=== PATIENT | male | born 1985 | race Caucasian/White ===

== ENCOUNTER 2018-07-23 22:51 | Emergency (ER) | END 2018-07-23 23:45 | disposition left against medical advice (07) ==

== ENCOUNTER 2018-10-23 13:03 | Emergency (ER) | payer OTHER ==
[~2018-10-23] VITALS: Ht 167.6 cm; Wt 73.6 kg
[~2018-10-23 13:03] MED LIST: CEPH-443 PO; CLIN300C10 PO; HYDR25SU23 PR; IBUP-1542 PO; IBUP800T48 PO; SULF1TAB31 PO
[2018-10-23 13:11] VITALS: Ht 167.6 cm; Wt 73.6 kg
--- NOTE | 2018-10-23 14:09 | ERD ---
ER Documentation Chief Complaint Chief Complaint pt here for medrefill-unknown abx-pt lost his prescription HPI 33-year-old male, presents the emergency department, complaining of sore throat and ear pain, the patient was diagnosed 2 days ago with bacterial pharyngitis at another facility and was prescribed with cephalexin, the patient states that he lost his prescription, otherwise, he reports headache, sore throat and general malaise. ROS All systems reviewed and are negative except as per history of present illness. Medications Home Meds Active Scripts Ibuprofen* (Motrin*) 400 Mg Tab, 400 MG PO Q8, #10 TAB Prov:BELKIS OLSON MD 10/23/18 Cephalexin* (Keflex*) 500 Mg Capsule, 500 MG PO BID for 7 Days, CAP Prov:BELKIS OLSON MD 10/23/18 Hydrocortisone Acetate (Anusol-Hc) 25 Mg Supp.rect, 1 SUPP [place] QHS PRN for HEMORROID PAIN/ITCHING, #12 SUPP.RECT Prov:DEEP MORRIS PA-C 09/21/18 Ibuprofen* (Motrin*) 600 Mg Tab, 600 MG PO Q6, #30 TAB Prov:DEEP MORRIS PA-C 09/21/18 Clindamycin Hcl* (Clindamycin Hcl*) 300 Mg Capsule, 300 MG PO TID for 7 Days, CAP Prov:DEEP MORRIS PA-C 09/21/18 Sulfamethoxazole/Trimethoprim* (Bactrim Ds* Tablet) 1 Each Tablet, 1 TAB PO BID for 7 Days, #14 TAB Prov:DRAKE HOFFMAN 07/23/18 Cephalexin* (Keflex*) 500 Mg Capsule, 500 MG PO TID for 7 Days, CAP Prov:DRAKE HOFFMAN 07/23/18 Ibuprofen* (Motrin*) 800 Mg Tab, 800 MG PO Q6H PRN for PAIN AND OR ELEVATED TEMP, #30 TAB Prov:DRAKE HOFFMAN 07/23/18 Allergies Allergies: Coded Allergies: No Known Drug Allergies (Verified Allergy, Unknown, 09/21/18) PMhx/Soc Medical and Surgical Hx: pt denies Medical Hx, pt denies Surgical Hx Hx Alcohol Use: No Hx Substance Use: No Hx Tobacco Use: No Smoking Status: Never smoker FmHx Family History: No diabetes, No coronary disease Physical Exam Vitals Vital Signs Date Temp Pulse Resp B/P (MAP) Pulse Ox O2 O2 Flow FiO2 Time Delivery Rate 10/23/18 98.4 95 19 144/76 100 Room Air 14:21 (98) 10/23/18 97.3 101 18 160/104 99 13:11 (122) Physical Exam Const: No acute distress Head: Atraumatic Eyes: Normal Conjunctiva ENT: Erythematous oropharynx. Neck: Full range of motion. No meningismus. Resp: Clear to auscultation bilaterally Cardio: Regular rate and rhythm, no murmurs Abd: Soft, non tender, non distended. Normal bowel sounds Skin: No petechiae or rashes Back: No midline or flank tenderness Ext: No cyanosis, or edema Neur: Awake and alert Psych: Normal Mood and Affect Procedures/MDM Differential diagnosis include but not limited to: Tonsillar/pharyngeal infection bacterial/viral/fungal, parotitis, allergies, GERD. Less likely peritonsillar abscess, retropharyngeal abscess. No signs of upper respiratory obstruction Physical examination and clinical presentation consistent most likely with acute bacterial tonsillitis During the ED course the patient remained stable, fever resolved with medications given in the ER, no new complaints. Clinical impression discussed with the patient who agrees with management. The patient is stable to be treated outpatient and will be discharged home with a Rx for cephalexin. Some side effects of prescribed medications (headache, rash, nausea, vomiting, diarrhea, drowsiness, habituation, bleeding, hypertension, interactions with other medications) were reviewed. The patient was instructed to follow up with the primary care provider in the next 48h. If symptoms persist, worsen or new symptoms develop, then patient should return to the ED immediately. Disclaimer: Inadvertent spelling and grammatical errors are likely due to EHR/dictation software use and do not reflect on the overall quality of patient care. Also, please note that the electronic time recorded on this note does not necessarily reflect the actual time of the patient encounter. Departure Diagnosis: Primary Impression: Encounter for medication refill Additional Impression: Acute bacterial pharyngitis Condition: Stable Additional Instructions: Thank you very much for allowing us to participate in your care. Your health and safety is our top priority at [facility]. Call your primary care doctor TOMORROW for an appointment during the next 2-4 days and bring all the information and medications prescribed. Have prescriptions filled and follow precisely the directions on the label. If the symptoms get worse and your provider is unavailable, return to the Emergency Department immediately. BELKIS OLSON MD Oct 23, 2018 14:09
[2018-10-23] MEDS ORDERED: CEPH-443 PO (14:12)
[2018-10-23] MEDS ORDERED: IBUP-1561 PO (14:12)
[2018-10-23 14:21] VITALS: BP 144/76; PULSE 95; RESP 19
== END 2018-10-23 14:21 | disposition home or self-care (01) ==
LOC: FTE 13:03
DX: Z76.0 Encounter for issue of repeat prescription (principal)
CPT/HCPCS: 99281

== ENCOUNTER 2018-10-28 02:51 | Emergency (ER) | payer OTHER ==
[~2018-10-28] VITALS: Ht 170.2 cm; Wt 74.2 kg
[~2018-10-28 02:51] MED LIST changes: +IBUP-1561 PO
[2018-10-28 02:57] VITALS: BP 140/63; PULSE 110; RESP 18
[2018-10-28 03:04] VITALS: Ht 170.2 cm; Wt 74.2 kg
[2018-10-28] MEDS ORDERED: AZITHROMYCIN 250 MG TAB PO ONE (04:30)
[2018-10-28] MEDS ORDERED: PENICILLIN G BENZ 2.4 MIL UNIT SYG IM ONE (04:30)
[2018-10-28] MEDS ORDERED: CEFTRIAXONE 250 MG INJ IM ONE (04:30)
--- NOTE | 2018-10-28 14:49 | ERD ---
ER Documentation Chief Complaint Chief Complaint mucousy penile discharge, foul odor HPI Pt is a 33 yo M with past medical hx of marijuana, cocaine and methamphetamine abuse, lasted used earlier today, who presents to the ED with complaints of intermittent penile discharge x 1 month. Pt states he had unprotected sexual intercourse with a female partner who had syphilis 1 month ago and is concerned that he now has syphilis too. He is requesting testing and treatment for syphilis as well as for gonorrhea and chlamydia. He reports intermittent, mucousy and foul smelling discharge from both his penile and rectum area. He denies any rash, genital ulcers, numbness, tingling, chest pain, nausea, vom iting, diarrhea, abdominal pain, fevers, chills or any other symptoms. ROS All systems reviewed and are negative except as per history of present illness. Medications Home Meds Active Scripts Ibuprofen* (Motrin*) 400 Mg Tab, 400 MG PO Q8, #10 TAB Prov:BELKIS OLSON MD 10/23/18 Cephalexin* (Keflex*) 500 Mg Capsule, 500 MG PO BID for 7 Days, CAP Prov:BELKIS OLSON MD 10/23/18 Hydrocortisone Acetate (Anusol-Hc) 25 Mg Supp.rect, [address] QHS PRN for HEMORROID PAIN/ITCHING, #12 SUPP.RECT Prov:DEEP MORRIS PA-C 09/21/18 Ibuprofen* (Motrin*) 600 Mg Tab, 600 MG PO Q6, #30 TAB Prov:DEEP MORRIS PA-C 09/21/18 Clindamycin Hcl* (Clindamycin Hcl*) 300 Mg Capsule, 300 MG PO TID for 7 Days, CAP Prov:DEEP MORRIS PA-C 09/21/18 Sulfamethoxazole/Trimethoprim* (Bactrim Ds* Tablet) 1 Each Tablet, 1 TAB PO BID for 7 Days, #14 TAB Prov:ISAIILADRAKE ATKINS 07/23/18 Cephalexin* (Keflex*) 500 Mg Capsule, 500 MG PO TID for 7 Days, CAP Prov:PASDRAKE CARTAGENA 07/23/18 Ibuprofen* (Motrin*) 800 Mg Tab, 800 MG PO Q6H PRN for PAIN AND OR ELEVATED TEMP, #30 TAB Prov:PASILABAN,DRAKE F 07/23/18 Allergies Allergies: Coded Allergies: No Known Drug Allergies (Verified Allergy, Unknown, 09/21/18) PMhx/Soc Hx Alcohol Use: Yes Hx Substance Use: Yes (Marijuana,cocaine,meth.) Hx Tobacco Use: Yes Smoking Status: Current every day smoker Physical Exam Vitals Vital Signs Date Temp Pulse Resp B/P (MAP) Pulse Ox O2 O2 Flow FiO2 Time Delivery Rate 10/28/18 98.1 98 16 154/96 98 03:04 (115) 10/28/18 101.6 110 18 140/63 96 02:57 (88) Physical Exam Const: No acute distress Head: Atraumatic Eyes: Normal Conjunctiva ENT: Normal External Ears, Nose and Mouth. Neck: Full range of motion. No meningismus. Resp: Clear to auscultation bilaterally Cardio: Regular rate and rhythm, no murmurs Exam: Scrotum: Normal. No ulcers or chancroids appreciated Hernia: None Testes/Epid: Non-tender w/ normal lie Cremaster: Reflex intact Lymph No inguinal lymphadenopathy Discharge: None Skin: No petechiae or rashes Ext: No cyanosis, or edema Neur: Awake and alert Psych: Normal Mood and Affect Results 24 hrs Current Medications Medications Dose Sig/Yuri Start Time Status Last (Trade) Ordered Route PRN Stop Time Admin Dose Reason Admin Penicillin 2,400,000 ONCE ONCE 10/28/18 DC 10/28/18 G units IM 04:30 10/28/18 04:38 Benzathine 04:31 (Bicillin La) Ceftriaxone 250 mg ONCE ONCE 10/28/18 DC 10/28/18 Sodium IM 04:30 10/28/18 04:38 (Rocephin) 04:31 1,000 mg ONCE ONCE 10/28/18 DC 10/28/18 Azithromycin PO 04:30 10/28/18 04:37 (Zithromax) 04:31 Procedures/MDM Pt is a 33 yo M with history of polysubstance abuse who presents the ED requesting testing and treatment for syphilis, GC/CT status post unprotected sexual intercourse over 1 month ago. Physical exam is unremarkable. Vital signs are stable. RPR and urine GC/CT NAAT testing was ordered per request of the patient and pending at time of discharge. Given pt's history and high risk sexually activity, I agreed to prophylactically treat him with Pencillin, Recephin and Azithromycin. He was discharged home in stable condition. I have low suspicion for neurosyphilis, cardiovascular, renal, or GI involvement. I recommended safe sexual practices and testing any new previous/new partners for STIs. He was told to follow up with PCP in 2 days, otherwise return to the ED for any new or worsening symptoms. Patient's blood pressure was elevated (>120/80) but appears stable without evidence of hypertension emergency or urgency. The patient was counseled about the risks of hypertension and urged to pursue outpatient monitoring and therapy within a week with their primary care physician Departure Diagnosis: Primary Impression: Possible exposure to STD Additional Impressions: High risk sexual behavior High risk sexual behavior type: heterosexual Qualified Codes: Z72.51 - High risk heterosexual behavior Polysubstance abuse Condition: Stable Patient Instructions: Syphilis, Std, Suspected (Culture Only) Referrals: [facility] YOU HAVE RECEIVED A MEDICAL SCREENING EXAM AND THE RESULTS INDICATE THAT YOU DO NOT HAVE A CONDITION THAT REQUIRES URGENT TREATMENT IN THE EMERGENCY DEPARTMENT. FURTHER EVALUATION AND TREATMENT OF YOUR CONDITION CAN WAIT UNTIL YOU ARE SEEN IN YOUR DOCTORS OFFICE WITHIN THE NEXT 1-2 DAYS. IT IS YOUR RESPONSIBILITY TO MAKE AN APPOINTMENT FOR FOLOW-UP CARE. IF YOU HAVE A PRIMARY DOCTOR --you should call your primary doctor and schedule an appointment IF YOU DO NOT HAVE A PRIMARY DOCTOR YOU CAN CALL OUR PHYSICIAN REFERRAL HOTLINE AT IF YOU CAN NOT AFFORD TO SEE A PHYSICIAN YOU CAN CHOSE FROM THE FOLLOWING [facility] CLINICS [facility] [address]. [facility] [address] [facility] [facility]. [facility] [address] [facility] [facility] [address] [facility]. [facility] [address] [facility]. [facility]. [address] Additional Instructions: I recommend safe sexual practices. He has been treated prophylactically for syphilis and gonorrhea chlamydia. The lab tests are pending. He can follow-up with a primary care provider in 2 days otherwise return to the ED for any new or worsening symptoms per NICOLLE MARROQUIN PA-C Oct 28, 2018 14:48
== END 2018-10-28 04:54 | disposition home or self-care (01) ==
LOC: FTE 02:51
DX: F15.10 Other stimulant abuse, uncomplicated (principal); F14.10 Cocaine abuse, uncomplicated; F12.10 Cannabis abuse, uncomplicated; F17.210 Nicotine dependence, cigarettes, uncomplicated; Z20.2 Contact with and (suspected) exposure to infections with a predominantly sexual mode of transmission; Z72.51 High risk heterosexual behavior
CPT/HCPCS: 36415; 86592; 87591; 96372; J0561; J0696; Z7502; Z7610

== ENCOUNTER 2018-10-30 08:51 | Emergency (ER) | payer OTHER ==
[~2018-10-30] VITALS: Ht 170.2 cm; Wt 72.5 kg
[2018-10-30 08:53] VITALS: BP 159/100; PULSE 95; RESP 18; Ht 170.2 cm; Wt 72.5 kg
--- NOTE | 2018-10-30 20:47 | ERD ---
ER Documentation Chief Complaint Chief Complaint here for blood test results, was asked to returned in 3 days HPI This is a 33 yo M who presents to the ED requesting blood test results from 3 days ago. Pt was originally seen here status post possible STD exposure. He was treated for syphilis, gonorrhea and chlamydia per his request. Blood was drawn and a urine sample was taken. He presents again today for the results of these tests. He denies any new STD exposures. Denies any penile discharge, dysuria, frequency, urgency, rash, ulcers or any other complaints. ROS All systems reviewed and are negative except as per history of present illness. Medications Home Meds Active Scripts Ibuprofen* (Motrin*) 400 Mg Tab, 400 MG PO Q8, #10 TAB Prov:BELKIS OLSON MD 10/23/18 Cephalexin* (Keflex*) 500 Mg Capsule, 500 MG PO BID for 7 Days, CAP Prov:BELKIS OLSON MD 10/23/18 Hydrocortisone Acetate (Anusol-Hc) 25 Mg Supp.rect, 1 SUPP [place] QHS PRN for HEMORROID PAIN/ITCHING, #12 SUPP.RECT Prov:DEEP MORRIS PA-C 09/21/18 Ibuprofen* (Motrin*) 600 Mg Tab, 600 MG PO Q6, #30 TAB Prov:DEEP MORRIS PA-C 09/21/18 Clindamycin Hcl* (Clindamycin Hcl*) 300 Mg Capsule, 300 MG PO TID for 7 Days, CAP Prov:DEEP MORRIS-C 09/21/18 Sulfamethoxazole/Trimethoprim* (Bactrim Ds* Tablet) 1 Each Tablet, 1 TAB PO BID for 7 Days, #14 TAB Prov:DRAKE HOFFMAN F 07/23/18 Cephalexin* (Keflex*) 500 Mg Capsule, 500 MG PO TID for 7 Days, CAP Prov:PASILAMERNA ATKINSAR F 07/23/18 Ibuprofen* (Motrin*) 800 Mg Tab, 800 MG PO Q6H PRN for PAIN AND OR ELEVATED TEMP, #30 TAB Prov:PASILABANMERNAAR F 07/23/18 Allergies Allergies: Coded Allergies: No Known Drug Allergies (Verified Allergy, Unknown, 09/21/18) PMhx/Soc History of Surgery: No Hx Neurological Disorder: No Hx Respiratory Disorders: No Hx Psychiatric Problems: No Hx Miscellaneous Medical Probl: No Hx Alcohol Use: Yes Hx Substance Use: Yes (Marijuana,cocaine,meth.) Hx Tobacco Use: Yes Smoking Status: Current every day smoker Physical Exam Vitals Vital Signs Date Temp Pulse Resp B/P (MAP) Pulse Ox O2 O2 Flow FiO2 Time Delivery Rate 10/30/18 98.9 95 18 159/100 100 08:53 (119) Physical Exam Const: No acute distress Head: Atraumatic Eyes: Normal Conjunctiva ENT: Normal External Ears, Nose and Mouth. Neck: Full range of motion. No meningismus. Resp: Clear to auscultation bilaterally Cardio: Regular rate and rhythm, no murmurs Abd: Soft, non tender, non distended. Normal bowel sounds Skin: No petechiae or rashes Back: No midline or flank tenderness Ext: No cyanosis, or edema Neur: Awake and alert Psych: Normal Mood and Affect Procedures/MDM 33 yo M presents today for lab results of his recent syphilis, gonorrhea, and chlamydia testing. Originally seen here 3 days ago where he was prophylactically treated for these. He returns again today requesting results of his labs. He is afebrile here and vitals signs are stable. No new STD exposures. Pt was given a copy of his RPR result which was negative. Urine GC/CT still pending. He has no new complaints. He was given a list of community clinics to follow up with the next few days, otherwise he is welcome to return here for any new or worsening symptoms. Patient's blood pressure was elevated (>120/80) but appears stable without evidence of hypertension emergency or urgency. The patient was counseled about the risks of hypertension and urged to pursue outpatient monitoring and therapy within a week with their primary care physician Departure Diagnosis: Primary Impression: Possible exposure to STD Condition: Stable Patient Instructions: Syphilis Referrals: COMMUNITY CLINICS YOU HAVE RECEIVED A MEDICAL SCREENING EXAM AND THE RESULTS INDICATE THAT YOU DO NOT HAVE A CONDITION THAT REQUIRES URGENT TREATMENT IN THE EMERGENCY DEPARTMENT. FURTHER EVALUATION AND TREATMENT OF YOUR CONDITION CAN WAIT UNTIL YOU ARE SEEN IN YOUR DOCTORS OFFICE WITHIN THE NEXT 1-2 DAYS. IT IS YOUR RESPONSIBILITY TO MAKE AN APPOINTMENT FOR FOLOW-UP CARE. IF YOU HAVE A PRIMARY DOCTOR --you should call your primary doctor and schedule an appointment IF YOU DO NOT HAVE A PRIMARY DOCTOR YOU CAN CALL OUR PHYSICIAN REFERRAL HOTLINE AT IF YOU CAN NOT AFFORD TO SEE A PHYSICIAN YOU CAN CHOSE FROM THE FOLLOWING COMMU NITY CLINICS [facility] [address] [facility] [address] [facility] [address] [facility] [address] [facility] [address] [facility]. [facility]. [address] Additional Instructions: Results are negative for any syphilis or STDs. I recommend safe sexual practices. Follow-up at the list of clinics are provided to you. Return to the ED for any new or worsening symptoms. NICOLLE MARROQUIN PA-C Oct 30, 2018 20:46
== END 2018-10-30 09:48 | disposition home or self-care (01) ==
LOC: FTE 08:51
DX: Z20.2 Contact with and (suspected) exposure to infections with a predominantly sexual mode of transmission (principal); F17.210 Nicotine dependence, cigarettes, uncomplicated
CPT/HCPCS: 99283

== ENCOUNTER 2019-01-02 12:52 | Emergency (ER) | payer SELFPAY ==
[~2019-01-02] VITALS: Wt 77.8 kg
[2019-01-02 12:58] VITALS: BP 157/91; PULSE 97; RESP 18
[2019-01-02] MEDS ORDERED: SIME1PAC PO (15:08)
--- NOTE | 2019-01-02 15:20 | ERD ---
ER Documentation Chief Complaint Chief Complaint DYSURIA BACK FOR RECHEACK HPI This is a 33-year-old male patient who presents the emergency room with complaints of malodorous stool and sensation of lump in his rectum. Patient also concerned that he may have an STD however he denies any STD exposures. Patient was here October 28, 2018 with request for STD testing, was negative for chlamydia, gonorrhea, syphilis, was treated while awaiting lab results. Patient denies penile discharge, dysuria, melena or hematochezia, no diarrhea, no constipation, no fevers, no vomiting, no abdominal pain. ROS All systems reviewed and are negative except as per history of present illness. Medications Home Meds Active Scripts Simethicone/Sod Bicarb/Cit AC (E-Z-Gas II Eff Granules) 1 Each Gran.ef.pk, 1 EACH PO BID for 5 Days, #10 Prov:ELEONORA PERES NP 01/02/19 Ibuprofen* (Motrin*) 400 Mg Tab, 400 MG PO Q8, #10 TAB Prov:BELKIS OLSON MD 10/23/18 Cephalexin* (Keflex*) 500 Mg Capsule, 500 MG PO BID for 7 Days, CAP Prov:BELKIS OLSON MD 10/23/18 Hydrocortisone Acetate (Anusol-Hc) 25 Mg Supp.rect, 1 SUPP [place] QHS PRN for HEMORROID PAIN/ITCHING, #12 SUPP.RECT Prov:DEEP MORRIS PA-C 09/21/18 Ibuprofen* (Motrin*) 600 Mg Tab, 600 MG PO Q6, #30 TAB Prov:DEEP MORRIS PA-C 09/21/18 Clindamycin Hcl* (Clindamycin Hcl*) 300 Mg Capsule, 300 MG PO TID for 7 Days, CAP Prov:DEEP MORRIS PA-C 09/21/18 Sulfamethoxazole/Trimethoprim* (Bactrim Ds* Tablet) 1 Each Tablet, 1 TAB PO BID for 7 Days, #14 TAB Prov:PASILAMERNA ATKINSAR F 07/23/18 Cephalexin* (Keflex*) 500 Mg Capsule, 500 MG PO TID for 7 Days, CAP Prov:PASILABANMERNAAR F 07/23/18 Ibuprofen* (Motrin*) 800 Mg Tab, 800 MG PO Q6H PRN for PAIN AND OR ELEVATED TEMP, #30 TAB Prov:DRAKE HOFFMAN 07/23/18 Allergies Allergies: Coded Allergies: No Known Drug Allergies (Verified Allergy, Unknown, 01/02/19) PMhx/Soc Medical and Surgical Hx: pt denies Surgical Hx History of Surgery: No Hx Neurological Disorder: No Hx Respiratory Disorders: No Hx Psychiatric Problems: No Hx Miscellaneous Medical Probl: No Hx Alcohol Use: Yes Hx Substance Use: Yes (Marijuana,cocaine,meth.) Hx Tobacco Use: Yes Smoking Status: Current every day smoker FmHx Family History: No diabetes, No coronary disease, No other Physical Exam Vitals Vital Signs Date Temp Pulse Resp B/P (MAP) Pulse Ox O2 O2 Flow FiO2 Time Delivery Rate 01/02/19 98.2 97 18 157/91 99 12:58 (113) Physical Exam Const: No acute distress Head: Atraumatic Eyes: Normal Conjunctiva ENT: Normal External Ears, Nose and Mouth. Neck: Full range of motion. No meningismus. No lymphadenopathy, no thyromegaly Resp: Clear to auscultation bilaterally, no oozing, no rales Cardio: Regular rate and rhythm, no murmurs Abd: Soft, non tender, non distended. Normal bowel sounds Gen: Penis without lesions, no discharge, no scrotal swelling or lesions. Rectal exam: no lesions, no drainage, no hemorrhoids or skin tags, no mass palpated, prostate equal and smooth. No tenderness during exam. Skin: No petechiae or rashes Back: No midline or flank tenderness Ext: No cyanosis, or edema Neur: Awake and alert Psych: Normal Mood and Affect Results 24 hrs Laboratory Tests Test 01/02/19 14:02 01/02/19 14:30 Stool Occult Blood NEGATIVE Bedside Urine pH (LAB) 6.0 Bedside Urine Protein (LAB) 1+ Bedside Urine Glucose (UA) Negative Bedside Urine Ketones (LAB) Trace Bedside Urine Blood Negative Bedside Urine Nitrite (LAB) Negative Bedside Urine Leukocyte Esterase (L Negative Procedures/MDM This is a 33-year-old male patient presents emergency room with complaint of malleolus bowel movement. ED COURSE: The patient was stable throughout ED course. I kept the patient and/or family informed of laboratory and diagnostic imaging results throughout the ED course. MDM: Although this patient was requesting treatment for STDs, there is no indication that patient currently has genital infection as he states he has not had sexual intercourse in over 2 months since he had a negative STD results here, no penile discharge, no dysuria, no abdominal pain, no fevers. There is no indication that the patient has rectal or perirectal abscess as there are no masses palpated or observed. No malodorous odor noted. There is no indication for abdominal abscess or GI abnormality as patient has no abdominal pain, no vomiting, no diarrhea, no constipation, no fever. Stool occult negative for blood. Patient has been prescribed simethicone for gas and instructed on decreasing intake of foods that cause malodorous gas such as broccoli, cabbage. She was instructed to return to the emergency room with any worsening or change of his symptoms. DISPOSITION: The patient has been discharge home to follow-up with community physician. Departure Diagnosis: Primary Impression: Offensive odor of feces Condition: Stable Patient Instructions: Diet, Low Gas Referrals: COMMUNITY CLINICS YOU HAVE RECEIVED A MEDICAL SCREENING EXAM AND THE RESULTS INDICATE THAT YOU DO NOT HAVE A CONDITION THAT REQUIRES URGENT TREATMENT IN THE EMERGENCY DEPARTMENT. FURTHER EVALUATION AND TREATMENT OF YOUR CONDITION CAN WAIT UNTIL YOU ARE SEEN IN YOUR DOCTORS OFFICE WITHIN THE NEXT 1-2 DAYS. IT IS YOUR RESPONSIBILITY TO MAKE AN APPOINTMENT FOR FOLOW-UP CARE. IF YOU HAVE A PRIMARY DOCTOR --you should call your primary doctor and schedule an appointment IF YOU DO NOT HAVE A PRIMARY DOCTOR YOU CAN CALL OUR PHYSICIAN REFERRAL HOTLINE AT IF YOU CAN NOT AFFORD TO SEE A PHYSICIAN YOU CAN CHOSE FROM THE FOLLOWING [facility] [address] [facility] [address] [facility] [facility] [address] [facility] [address] [facility]. [facility] [address] [facility]. [facility]. [address] Additional Instructions: Thank you very much for allowing us to participate in your care. Your health and safety is our top priority at [facility]. Call your primary care doctor TOMORROW for an appointment during the next 2-4 days and bring all the information and medications prescribed. Have prescriptions filled and follow precisely the directions on the label. If the symptoms get worse and your provider is unavailable, return to the Emergency Department immediately. THERE IS NO INFECTION IN YOUR URINE, THERE IS NO INDICATION FOR RECTAL ABSCESS OR INFECTION, YOU HAVE NOT HAD EXPOSURE TO INDICATE YOU HAVE STD- THE LAST TESTS 2 MONTHS AGO WERE NEGATIVE FOR STD PLEASE [facility]ABL[facility]ARE WITH [facility] PLEASE RETURN TO ER WITH FEVER, VOMITING, SEVERE ABD PAIN, BLOOD IN STOOL ELEONORA PERES NP January 02, 2019 15:20
== END 2019-01-02 15:51 | disposition home or self-care (01) ==
LOC: FTE 12:52
DX: R19.5 Other fecal abnormalities (principal); F17.210 Nicotine dependence, cigarettes, uncomplicated
CPT/HCPCS: 81003; 82270; 99283

== ENCOUNTER 2019-03-27 20:09 | Emergency (ER) | payer SELFPAY ==
[~2019-03-27] VITALS: Ht 170.2 cm; Wt 74.2 kg
[~2019-03-27 20:09] MED LIST changes: +CLOT30CR24 TOP; +DOXY100T21 PO; +SIME1PAC PO
[2019-03-27 20:11] VITALS: BP 150/103; PULSE 108; RESP 22; Ht 170.2 cm; Wt 74.2 kg
[2019-03-27] MEDS ORDERED: AZITHROMYCIN 500 MG TAB PO ONE (21:00)
--- NOTE | 2019-03-27 21:22 | ERD ---
ER Documentation Chief Complaint Chief Complaint MOUTH BLISTERS X1DAY; HX OF COLD SORES HPI 34-year-old male presents with a history of multiple complaints. He noticed some mouth sores today. He also has a sore on his right hand. Is an additional complaint of foul smell from his rectum. patient has a history of schizophrenia, methamphetamine abuse, marijuana abuse, high risk sexual activity. Patient had negative RPR, chlamydia and gonorrhea for previous complaints approximate 4 months ago. He is requesting retesting for gonorrhea chlamydia. He is declining repeat syphilis testing. ROS All systems reviewed and are negative except as per history of present illness. Medications Home Meds Active Scripts Clotrimazole* (Clotrimazole* AF) 1% - 30 Gm Cream.gm., 1 APPLIC TOP BID for 10 Days, TUB Prov:FREDIS MIMS MD 03/27/19 Doxycycline Monohydrate* (Doxycycline Monohydrate*) 100 Mg Tablet, 100 MG PO BID for 10 Days, TAB Prov:FREDIS MIMS MD 03/27/19 Simethicone/Sod Bicarb/Cit AC (E-Z-Gas II Eff Granules) 1 Each Gran.ef.pk, 1 EACH PO BID for 5 Days, #10 Prov:ELEONORA PERES NP 01/02/19 Ibuprofen* (Motrin*) 400 Mg Tab, 400 MG PO Q8, #10 TAB Prov:BELKIS OLSON MD 10/23/18 Cephalexin* (Keflex*) 500 Mg Capsule, 500 MG PO BID for 7 Days, CAP Prov:BELKIS OLSON MD 10/23/18 Hydrocortisone Acetate (Anusol-Hc) 25 Mg Supp.rect, 1 SUPP VA QHS PRN for HEMORROID PAIN/ITCHING, #12 SUPP.RECT Prov:DEEP MORRIS PA-C 09/21/18 Ibuprofen* (Motrin*) 600 Mg Tab, 600 MG PO Q6, #30 TAB Prov:DEEP MORRIS PA-C 09/21/18 Clindamycin Hcl* (Clindamycin Hcl*) 300 Mg Capsule, 300 MG PO TID for 7 Days, CAP Prov:DEEP MORRIS PA-C 09/21/18 Sulfamethoxazole/Trimethoprim* (Bactrim Ds* Tablet) 1 Each Tablet, 1 TAB PO BID for 7 Days, #14 TAB Prov:DRAKE HOFFMAN 07/23/18 Cephalexin* (Keflex*) 500 Mg Capsule, 500 MG PO TID for 7 Days, CAP Prov:DRAKE HOFFMAN 07/23/18 Ibuprofen* (Motrin*) 800 Mg Tab, 800 MG PO Q6H PRN for PAIN AND OR ELEVATED TEMP, #30 TAB Prov:DRAKE HOFFMAN 07/23/18 Allergies Allergies: Coded Allergies: No Known Drug Allergies (Verified Allergy, Unknown, 01/02/19) PMhx/Soc History of Surgery: No Hx Neurological Disorder: No Hx Respiratory Disorders: No Hx Psychiatric Problems: No Hx Miscellaneous Medical Probl: No Hx Alcohol Use: Yes Hx Substance Use: Yes (Marijuana,cocaine,meth.) Hx Tobacco Use: Yes Smoking Status: Current every day smoker FmHx Family History: No diabetes, No coronary disease, No other Physical Exam Vitals Vital Signs Date Temp Pulse Resp B/P (MAP) Pulse Ox O2 O2 Flow FiO2 Time Delivery Rate 03/27/19 99.6 108 22 150/103 100 20:11 (119) Physical Exam Const: No acute distress Head: Atraumatic Eyes: Normal Conjunctiva ENT: Normal External Ears, Nose and Mouth. Erythematous mouth sores on the lower lips. Neck: Full range of motion. No meningismus. Resp: Clear to auscultation bilaterally Cardio: Regular rate and rhythm, no murmurs Abd: Soft, non tender, non distended. Normal bowel sounds rectal exam shows some redness and irritation around the folds of the buttocks and rectum without erythema, induration, masses or fluctuance. Skin: No petechiae or rashes Back: No midline or flank tenderness Ext: No cyanosis, or edema. Circular sore on the right thumb and index finge r. No palmar rashes. Neur: Awake and alert Psych: Normal Mood and Affect Results 24 hrs Laboratory Tests Test 03/27/19 20:47 Urine Color YELLOW Urine Clarity SLIGHTLY CLOUDY Urine pH 5.0 Urine Specific [place] 1.032 Urine Ketones 1+ mg/dL Urine Nitrite NEGATIVE mg/dL Urine Bilirubin NEGATIVE mg/dL Urine Urobilinogen NEGATIVE mg/dL Urine Leukocyte Esterase NEGATIVE Day[place]/ul Urine Microscopic RBC 0 /HPF Urine Microscopic WBC 3 /HPF Urine Mucus FEW /HPF Urine Hemoglobin 1+ mg/dL Urine Glucose 1+ mg/dL Urine Total Protein 2+ mg/dl Current Medications Medications Dose Sig/Yuri Start Time Status Last (Trade) Ordered Route PRN Stop Time Admin Dose Reason Admin 1,000 mg ONCE ONCE 03/27/19 DC 03/27/19 Azithromycin PO 21:00 03/27/19 20:51 (Zithromax) 21:01 Procedures/MDM She presents with nonspecific mouth sores starting today. May be a viral stomatitis or sequela of drug use. Patient is requesting empiric treatment for STDs but is declining injection. He was given Zithromax 1 g p.o. and will be treated with doxycycline, and low treatment for what appears to be tinea cruris. He will be discharged home with primary care follow-up and return precautions. Gonorrhea and Chlamydia test BY request pending. The patient was stable with no new complaints during the ER course. Clinically, there is no current evidence to suggest meningitis, sepsis, acute abdomen, pneumonia, stroke, acute coronary syndrome, pulmonary embolism, aortic dissection or any other emergent condition appearing to require further evaluation or hospitalization. Patient counseled regarding my diagnostic impression and care plan. Prior to discharge all questions answered. Pt agrees with treatment plan and understands strict return precautions. Pt is instructed to follow up with primary care provider within 24- 48 hours. Precautionary instructions provided including instructions to return to the ER if not improving or for any worsening or changing symptoms or concerns. Disclaimer: Inadvertent spelling and grammatical errors are likely due to EHR/dictation software use and do not reflect on the overall quality of patient care. Also, please note that the electronic time recorded on this note does not necessarily reflect the actual time of the patient encounter. Departure Diagnosis: Primary Impression: Sore in mouth Patient Instructions: Std, Suspected (Culture Only), Tinea Cruris, General Referrals: NO PRIMARY,CARE PHYSICIAN (PCP) Additional Instructions: Use lip balm to keep lips moist. You should be called with abnormal STD resul ts. Recheck for worsening redness, fevers, new worsening symptoms. FREDIS MIMS MD Mar 27, 2019 21:22
== END 2019-03-27 21:46 | disposition home or self-care (01) ==
LOC: FTE 20:09
DX: K13.79 Other lesions of oral mucosa (principal); F17.210 Nicotine dependence, cigarettes, uncomplicated
CPT/HCPCS: 81001; 87591; 99283

== ENCOUNTER 2019-04-07 19:40 | Emergency (ER) | payer MEDICAID ==
[~2019-04-07] VITALS: Ht 172.7 cm; Wt 75.0 kg
[2019-04-07 19:43] VITALS: BP 152/90; PULSE 110; RESP 20; Ht 172.7 cm; Wt 75.0 kg
--- NOTE | 2019-04-07 22:09 | ERD ---
ER Documentation Chief Complaint Chief Complaint STD RESULTS. HPI Patient is a 34-year-old male with no medical problems who presents saying that he wants to be "tested for an STD". He reports odor coming from his penis. He said that is been there for "months". He has had no fevers. He has had no treatment as of yet. Upon review of old medical records this is the patient's eighth visit to the ER since June 2018. He does not currently have a primary doctor. ROS All systems reviewed and are negative except as per history of present illness. Medications Home Meds Active Scripts Clotrimazole* (Clotrimazole* AF) 1% - 30 Gm Cream.gm., 1 APPLIC TOP BID for 10 Days, TUB Prov:FREDIS MIMS MD 03/27/19 Doxycycline Monohydrate* (Doxycycline Monohydrate*) 100 Mg Tablet, 100 MG PO BID for 10 Days, TAB Prov:FREDIS MIMS MD 03/27/19 Simethicone/Sod Bicarb/Cit AC (E-Z-Gas II Eff Granules) 1 Each Gran.ef.pk, 1 EACH PO BID for 5 Days, #10 Prov:ELEONORA PERES NP 01/02/19 Ibuprofen* (Motrin*) 400 Mg Tab, 400 MG PO Q8, #10 TAB Prov:BELKIS OLSON MD 10/23/18 Cephalexin* (Keflex*) 500 Mg Capsule, 500 MG PO BID for 7 Days, CAP Prov:BELKIS OLSON MD 10/23/18 Hydrocortisone Acetate (Anusol-Hc) 25 Mg Supp.rect, 1 SUPP GA QHS PRN for HEMORROID PAIN/ITCHING, #12 SUPP.RECT Prov:DEEP MORRIS PA-C 09/21/18 Ibuprofen* (Motrin*) 600 Mg Tab, 600 MG PO Q6, #30 TAB Prov:DEEP MORRIS PA-C 09/21/18 Clindamycin Hcl* (Clindamycin Hcl*) 300 Mg Capsule, 300 MG PO TID for 7 Days, CAP Prov:DEEP MORRIS PA-C 09/21/18 Sulfamethoxazole/Trimethoprim* (Bactrim Ds* Tablet) 1 Each Tablet, 1 TAB PO BID for 7 Days, #14 TAB Prov:DRAKE HOFFMAN 07/23/18 Cephalexin* (Keflex*) 500 Mg Capsule, 500 MG PO TID for 7 Days, CAP Prov:DRAKE HOFFMAN 07/23/18 Ibuprofen* (Motrin*) 800 Mg Tab, 800 MG PO Q6H PRN for PAIN AND OR ELEVATED TEMP, #30 TAB Prov:DRAKE HOFFMAN 07/23/18 Allergies Allergies: Coded Allergies: No Known Drug Allergies (Verified Allergy, Unknown, 01/02/19) PMhx/Soc History of Surgery: No Hx Neurological Disorder: No Hx Respiratory Disorders: No Hx Psychiatric Problems: No Hx Miscellaneous Medical Probl: No Hx Alcohol Use: Yes Hx Substance Use: Yes (Marijuana,cocaine,meth.) Hx Tobacco Use: Yes Smoking Status: Current every day smoker FmHx Family History: No diabetes Physical Exam Vitals Vital Signs Date Temp Pulse Resp B/P (MAP) Pulse Ox O2 O2 Flow FiO2 Time Delivery Rate 04/07/19 99.9 110 20 152/90 97 19:43 (110) Physical Exam Const: No acute distress Head: Atraumatic Eyes: Normal Conjunctiva ENT: Normal External Ears, Nose and Mouth. Neck: Full range of motion. No meningismus. Resp: Clear to auscultation bilaterally Cardio: Regular rate and rhythm, no murmurs Abd: Soft, non tender, non distended. Normal bowel sounds Skin: No petechiae or rashes Back: No midline or flank tenderness Ext: No cyanosis, or edema Neur: Awake and alert Psych: Shifty and evasive with answers Procedures/MDM GC and Chlamydia testing is pending. Smoking Cessation Therapy: Pt. was lectured for greater than 3 minutes on the health risks of continued smoking and the benefits of cessation. Patient is a 34-year-old male who presents for STD testing. He was negative for GC and chlamydia recently. He is requesting "to be treated". However I do not believe he has a Trulicity at this time and I will not treat empirically unless the patient comes back positive for GC or chlamydia. We do not do HIV testing here routinely. The patient will be discharged but he should follow-up with the local clinics within 1 week. He can return for any worsening symptoms. Departure Diagnosis: Primary Impression: Screening for STD (sexually transmitted disease) Condition: Fair Patient Instructions: Understanding STDs Referrals: [facility] YOU HAVE RECEIVED A MEDICAL SCREENING EXAM AND THE RESULTS INDICATE THAT YOU DO NOT HAVE A CONDITION THAT REQUIRES URGENT TREATMENT IN THE EMERGENCY DEPARTMENT. FURTHER EVALUATION AND TREATMENT OF YOUR CONDITION CAN WAIT UNTIL YOU ARE SEEN IN YOUR DOCTORS OFFICE WITHIN THE NEXT 1-2 DAYS. IT IS YOUR RESPONSIBILITY TO MAKE AN APPOINTMENT FOR FOLOW-UP CARE. IF YOU HAVE A PRIMARY DOCTOR --you should call your primary doctor and schedule an appointment IF YOU DO NOT HAVE A PRIMARY DOCTOR YOU CAN CALL OUR PHYSICIAN REFERRAL HOTLINE AT IF YOU CAN NOT AFFORD TO SEE A PHYSICIAN YOU CAN CHOSE FROM THE FOLLOWING [facility] [address] [facility] [address] [facility]. [facility] [address] [facility] [facility] [address] [facility] [facility] [address] [facility]. [facility] [address] [facility]. [facility] YOU HAVE RECEIVED A MEDICAL SCREENING EXAM AND THE RESULTS INDICATE THAT YOU DO NOT HAVE A CONDITION THAT REQUIRES URGENT TREATMENT IN THE EMERGENCY DEPARTMENT. FURTHER EVALUATION AND TREATMENT OF YOUR CONDITION CAN WAIT UNTIL YOU ARE SEEN IN YOUR DOCTORS OFFICE WITHIN THE NEXT 1-2 DAYS. IT IS YOUR RESPONSIBILITY TO MAKE AN APPOINTMENT FOR FOLOW-UP CARE. IF YOU HAVE A PRIMARY DOCTOR --you should call your primary doctor and schedule and appointment IF YOU DO NOT HAVE A PRIMARY DOCTOR YOU CAN CALL OUR PHYSICIAN REFERRAL HOTLINE AT . IF YOU CAN NOT AFFORD TO SEE A PHYSICIAN YOU CAN CHOSE FROM THE FOLLOWING [facility] INSTITUTIONS: [facility] [address] [place] [address] [facility] [address] [place] [address] [facility] [address] [place] [address] Additional Instructions: Call your primary care doctor TOMORROW for an appointment during the next 1-2 days.See the doctor sooner or return here if your condition worsens before your appointment time. OSTICK,JESUS MD Apr 07, 2019 22:09
== END 2019-04-07 20:36 | disposition home or self-care (01) ==
LOC: FTE 19:40 → E/R 20:36
DX: Z01.812 Encounter for preprocedural laboratory examination (principal); F17.210 Nicotine dependence, cigarettes, uncomplicated
CPT/HCPCS: 87591; Z7502; 99283